=== PATIENT | male | born 1965 | race Caucasian/White ===

== ENCOUNTER → 2019-05-03 | Outpatient (CLI) | payer OTHER ==
--- NOTE | 2019-05-04 08:31 | RAD ---
THORACIC SPINE 3V History: Back pain Comparison: None. Findings: 3 views of the thoracic spine are submitted. Thoracic vertebral body stature and AP alignment are overall maintained. No acute osseous abnormality is identified by radiographs. There is very mild superior thoracic levoscoliosis. Impression: 1. No acute osseous abnormality is identified by radiographs. Electronically signed by: Dwayne Rush MD (05/04/2019 8:28 AM) [id number]
== END | disposition home or self-care (01) ==
LOC: RAD 17:33
PROVIDERS: ATTEND Family Medicine
DX: M41.84 Other forms of scoliosis, thoracic region (principal)
CPT/HCPCS: 72072